=== PATIENT | female | born 1975 | race Caucasian/White ===

== ENCOUNTER 2023-07-21 00:04 | Day surgery (SDC) | payer BC, SELFPAY ==
[2023-07-10 11:47] VITALS: BMI 33.7
--- NOTE | 2023-07-19 14:54 | SUR.PREOP ---
Patient called regarding upcoming procedure. Reviewed preop instructions, appointment times, and procedure prep.
[2023-07-21 09:16] VITALS: BP 127/79; PULSE 94; RESP 16; TEMP 37; O2SAT 100
[2023-07-21 09:16] LABS: Glucose Point of Care 114 mg/dl (65-105)
[2023-07-21] MEDS: LACTATED RINGERS 1,000 ML 150 ML IV CONT (09:24)
--- NOTE | 2023-07-21 09:36 | WPDANESEPPF ---
Anes - Initial Pre Proc Eval Procedure: Operation Date: 07/21/23 10:30 Proposed Procedures p Screening Colonoscopy - Gus Acevedo MD Date/Time: 07/21/23 09:36 Surgeon: Gus Acevedo MD Pre Op Diagnosis: neoplasm screening Patient Data Age: 48 Gender: F Height: 1.68 m Weight: 94.8 kg Last Vital Signs Temp 98.6 F 07/21/23 09:16 Pulse 94 07/21/23 09:16 Resp 16 07/21/23 09:16 BP 127/79 07/21/23 09:16 Pulse Ox 100 07/21/23 09:16 O2 Del Method Room Air 07/21/23 09:16 Allergies Allergy/AdvReac Type Severity Reaction Status Date / Time simvastatin AdvReac Intermediate chest Verified 07/21/23 09:15 heaviness Home Medications Medication Instructions Recorded Confirmed Type blood sugar diagnostic (OneTouch See Rx Instructions .Route 07/20/20 07/10/23 Rx Ultra Blue Test Strip) .COMPLEX #400 strips pen needle, diabetic 32 gauge x See Rx Instructions .Route 07/16/21 07/10/23 Rx /32 (BD Ultra-Fine Shanta Pen .COMPLEX #100 ea Needle) [id number] 18 mg-FA 400 1 tablet PO DAILY 09/29/21 07/10/23 History mcg-calcium 500 mg-vit K 50 mcg tablet (Women's Multivitamin) rosuvastatin 10 mg tablet See Rx Instructions .Route 10/10/22 07/10/23 Rx .COMPLEX #90 tabs dapagliflozin propanediol 5 mg 5 mg PO DAILY 03/29/23 07/10/23 History tablet (Farxiga) tirzepatide 7.5 mg/0.5 mL 7.5 mg subcut WEEKLY 03/29/23 07/10/23 History subcutaneous pen injector (Mounjaro) zolpidem 10 mg tablet (Ambien) 10 mg PO .HS PRN insomnia #90 tabs 06/01/23 07/10/23 Rx alprazolam 0.5 mg tablet (Xanax) 0.5 mg PO TID PRN anxiety #90 tabs 07/06/23 07/10/23 Rx gabapentin 100 mg tablet 200 mg PO DAILY 07/10/23 07/10/23 History insulin degludec 100 unit/mL 30 unit subcut DAILY 07/10/23 07/10/23 History subcutaneous solution (Tresiba U-100 Insulin) vitamin E 1,000 unit tablet 1 tablet PO DAILY 07/10/23 07/10/23 History Laboratory Tests 07/21/23 09:13 POC Capillary Glucose 114 H mg/dl (65-105) Patient hx anesthesia problems: none Family hx anesthesia problems: none Results Review: All pre-operative results and documents have been reviewed as part of the pre-operative evaluation. [facility] Past Medical History Medical History (Updated 03/29/23 @ 11:44 by Teri Meyer PA-C) Anxiety Depression Diabetes mellitus HLD (hyperlipidemia) Liver mass hepatic adenoma,Monitored Sraah Gibbons [facility] Pancreatic tumor pseudopapillary, Monitored by Mariela Gibbons Surgical History Surgical History H/O splenectomy History of partial pancreatectomy Family History Family History (Updated 03/29/23 @ 10:26 by Teri Meyer PA-C) Father Adenocarcinoma liver Grandparent Liver cancer Social History Social History Smoking status: Never smoker Second hand tobacco smoke exposure: No Alcohol intake: current Alcohol use details: seldom; socially Substance use: never Substance use type: does not use Living arrangements: with family Occupation/Education: occupation Anes - Eval Final PreProcedure Day of Procedure 07/21/23 09:36 Patient weight: obese Heart: regular rate and rhythm Lungs: clear to auscultation Airway: Mallampati scale class II Neurological: alert and oriented Last oral intake: >/= 8 hours ASA classification: III Emergent: no Anesthetic plan: proceed Anesthesia type and monitoring: general GIVS and standard monitoring Results Review: All pre-operative results and documents have been reviewed as part of the pre-operative evaluation. Informed Consent: The patient's anesthetic plan and its attendant risks and benefits were discussed with the patient/family/POA. Questions were solicited and answers provided to the satisfaction of the patient/
--- NOTE | 2023-07-21 09:53 | PM.HPGS ---
History of Present Illness History of Present Illness Consent: Risks, benefits, and alternatives have been discussed and questions answered. Patient agrees to proceed with procedure. 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 [facility] Surgical History Surgical History H/O splenectomy History of partial pancreatectomy Family History Family History (Updated 03/29/23 @ 10:26 by Teri Meyer PA-C) Father Adenocarcinoma liver Grandparent Liver cancer Social History Social History Smoking status: Never smoker Second hand tobacco smoke exposure: No Alcohol intake: current Alcohol use details: seldom; socially Substance use: never Substance use type: does not use Living arrangements: with family Occupation/Education: occupation Meds Home Medications and Allergies Home Medications Medication Instructions Recorded Confirmed Type blood sugar diagnostic (OneTouch See Rx Instructions .Route 07/20/20 07/10/23 Rx Ultra Blue Test Strip) .COMPLEX #400 strips pen needle, diabetic 32 gauge x See Rx Instructions .Route 07/16/21 07/10/23 Rx (BD Ultra-Fine Shanta Pen .COMPLEX #100 ea Needle) [id number] 18 mg-FA 400 1 tablet PO DAILY 09/29/21 07/10/23 History mcg-calcium 500 mg-vit K 50 mcg tablet (Women's Multivitamin) rosuvastatin 10 mg tablet See Rx Instructions .Route 10/10/22 07/10/23 Rx .COMPLEX #90 tabs dapagliflozin propanediol 5 mg 5 mg PO DAILY 03/29/23 07/10/23 History tablet (Farxiga) tirzepatide 7.5 mg/0.5 mL 7.5 mg subcut WEEKLY 03/29/23 07/10/23 History subcutaneous pen injector (Mounespinozaro) zolpidem 10 mg tablet (Ambien) 10 mg PO .HS PRN insomnia #90 tabs 06/01/23 07/10/23 Rx alprazolam 0.5 mg tablet (Xanax) 0.5 mg PO TID PRN anxiety #90 tabs 07/06/23 07/10/23 Rx gabapentin 100 mg tablet 200 mg PO DAILY 07/10/23 07/10/23 History insulin degludec 100 unit/mL 30 unit subcut DAILY 07/10/23 07/10/23 History subcutaneous solution (Tresiba U-100 Insulin) vitamin E 1,000 unit tablet 1 tablet PO DAILY 07/10/23 07/10/23 History Allergies Allergy/AdvReac Type Severity Reaction Status Date / Time simvastatin AdvReac Intermediate chest Verified 07/21/23 09:15 heaviness Vital Signs Vital Signs - 24 hr 07/21/23 09:16 Temperature 98.6 F Pulse Rate 94 Respiratory Rate 16 Blood Pressure 127/79 Pulse Oximetry 100 Oxygen Delivery Room Air Exam Const: General: comfortable and no acute distress HENMT: Face/Nose/Sinus: Normal nares present Eyes: General: appearance normal, both eyes and all related structures Neck: Neck: no JVD Resp: Auscultation: clear to auscultation bilaterally Cardio: Rate: regular rate Rhythm: regular rhythm GI: Inspection: non-distended GI Palp: Yes Soft to palpation Skin: General skin exam: normal color Neuro: General: gait normal Speech: normal speech Extrem: General: normal to inspection Psych: Mental Status: mental status grossly normal Assessment and Plan Assessment and plan (1) Colon cancer screening: Code(s): Z12.11 - Encounter for screening for malignant neoplasm of colon Status: Acute Assessment and Plan: colonoscopy
[2023-07-21 10:11] VITALS: BP 103/57; PULSE 84; RESP 18; O2SAT 99
[2023-07-21 10:21] VITALS: BP 106/64; PULSE 72; RESP 22; O2SAT 100
[2023-07-21 10:26] LABS: Glucose Point of Care 88 mg/dl (65-105)
[2023-07-21 10:31] VITALS: BP 110/68; PULSE 71; RESP 16; O2SAT 100
== END 2023-07-21 10:37 | disposition home or self-care (01) ==
PROVIDERS: PCP Family Medicine; Visit Provider Internal Medicine Gastroenterology
PROC: 0DJD8ZZ Inspection of Lower Intestinal Tract, Via Natural or Artificial Opening Endoscopic (ICD-10-PCS; CPT 45378; principal; 2023-07-21 10:30)
DX: Z12.11 Encounter for screening for malignant neoplasm of colon (principal); K57.30 Diverticulosis of large intestine without perforation or abscess without bleeding; K64.8 Other hemorrhoids; E11.9 Type 2 diabetes mellitus without complications; E78.5 Hyperlipidemia, unspecified; F41.9 Anxiety disorder, unspecified; F32.A Depression, unspecified; D13.4 Benign neoplasm of liver; D13.6 Benign neoplasm of pancreas; Z79.84 Long term (current) use of oral hypoglycemic drugs; Z79.85 Long-term (current) use of injectable non-insulin antidiabetic drugs; Z79.4 Long term (current) use of insulin; Z90.81 Acquired absence of spleen; Z90.411 Acquired partial absence of pancreas; E66.9 Obesity, unspecified; Z68.33 Body mass index [BMI] 33.0-33.9, adult
CPT/HCPCS: 45378; 82948; J2704; J7120